=== PATIENT | male | born 1935 | race Caucasian/White ===

== ENCOUNTER → 2016-06-02 | Outpatient (CLI) | payer MEDICARE | LOC: MW.CHFP 08:00 | DX: S32.010A Wedge compression fracture of first lumbar vertebra, initial encounter for closed fracture (principal) | CPT/HCPCS: 99214 ==

== ENCOUNTER → 2016-06-15 | Outpatient (CLI) | payer MEDICARE | LOC: MW.CHFP 08:00 | PROVIDERS: ATTEND Student in an Organized Health Care Education/Training Program | DX: S32.010A Wedge compression fracture of first lumbar vertebra, initial encounter for closed fracture (principal) | CPT/HCPCS: G0463 ==

== ENCOUNTER → 2016-06-16 | Outpatient (CLI) | payer MEDICARE ==
--- NOTE | 2016-06-16 16:18 | CT ---
EXAMINATION: CT lumbar spine HISTORY: Wedge compression COMPARISON: 05/26/2016 TECHNIQUE: Axial CT images obtained through the thoracic spine without contrast. Coronal and sagitta l reconstructions obtained. FINDINGS: The lumbar spinal alignment appears grossly normal. There is mild compression deformity al rayne the superior endplate of L1, likely subacute to chronic. The visualized osseous structures other abebe appear mildly osteopenic. Spondylolysis is noted on the right at L5, also likely chronic. Disc space narrowing is noted at L4-L5 and L3-L4. Marginal osteophytes are noted. The SI joints are symme tric with mild anterior spurring. The visualized retroperitoneal structures appear grossly unremarka ble. IMPRESSION: 1. Mild subacute to chronic compression deformity at L1. 2. Likely chronic spondylolysis on the right at L5. 3. Multilevel degenerative changes and degenerative disc disease. 4. Mild osteopenia.
== END | disposition home or self-care (01) ==
LOC: MW.DI 12:52
PROVIDERS: ATTEND Student in an Organized Health Care Education/Training Program
DX: S32.010A Wedge compression fracture of first lumbar vertebra, initial encounter for closed fracture (principal); M43.8X6 Other specified deforming dorsopathies, lumbar region; M51.36 Other intervertebral disc degeneration, lumbar region; M47.896 Other spondylosis, lumbar region; M85.88 Other specified disorders of bone density and structure, other site
CPT/HCPCS: 72131; 72131-26

== ENCOUNTER 2016-09-21 17:34 | Emergency (ER) | payer MEDICARE ==
[2016-09-21] MEDS ORDERED: Sodium Chloride 0.9% 2.5 ML Syringe FLUSH PRN (17:53)
[2016-09-21] MEDS ORDERED: Sodium Chloride 0.9% 10 ML Syringe FLUSH PRN (17:53)
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
[2016-09-21] MEDS ORDERED: Labetalol 5 MG/ML 5 ML Syringe IVPUSH ONE (18:44)
[2016-09-21 19:26] VITALS: BP 163/86
--- NOTE | 2016-09-22 10:32 | CR ---
EXAM DATE: 09/21/16 PATIENT'S AGE: 81 Patient: FRANK GARCIA Facility: [place], [place] Site . Site : 1935 Study: XRay Chest [id number]/20/2017 6:10:49 PM Ordering Physician: Lydia Osorio Final Report: INDICATION: fall, loc TECHNIQUE: Chest 1 view COMPARISON: Aug 21 2015. FINDINGS: Cardiovascular and mediastinum: Heart size and vasculature are normal in caliber and appearance. Mediastinum is within normal limits. Lungs and pleural space: No focal consolidation. No sign of pleural effusion. No pneumothorax. Bones and soft tissues: Degenerative changes. IMPRESSION: No acute cardiopulmonary disease. Dictated by David Dietz MD @ 09/21/2016 6:24:11 PM Dictated by: David Dietz MD @ 09/21/2016 18:24:15 (Electronic Signature) Report Signed by Proxy. [facility]
--- NOTE | 2016-09-22 10:32 | CT ---
EXAM DATE: 09/21/16 PATIENT'S AGE: 81 Patient: FRANK GARCIA Facility: [place], [place] Site . Site : 1935 Study: CT Head [id number]/20/2017 6:07:36 PM Ordering Physician: Lydia Osorio Final Report: INDICATION: Fall. Loss of consciousness. CT HEAD WITHOUT CONTRAST TECHNIQUE: Multiple axial CT images were performed through the head without intravenous contrast administration. COMPARISON: 09/03/[address] FINDINGS: There is a small amount of acute-appearing intraventricular hemorrhage within the right lateral ventricle. No definite hydrocephalus is seen. There is no mass effect or midline shift. There is mild diffuse age- related brain atrophy, as before. Polanco-white differentiation is within normal limits. There is unchanged patchy hypodensity in the periventricular white matter, a nonspecific finding which most likely reflects chronic small vessel ischemic change. There is an unchanged chronic infarct in the posterior right temporal lobe. Intracranial atherosclerotic vascular calcifications are noted. Osseous structures are within normal limits and no fractures are seen. Included portions of the paranasal sinuses and mastoid air cells are normally aerated. IMPRESSION: 1. Acute mild intraventricular hemorrhage within the right lateral ventricle. No definite hydrocephalus. No mass effect or midline shift. 2. Age-related brain atrophy, white matter hypodensity consistent with chronic small vessel ischemic change, chronic right temporal lobe infarct, and intracranial atherosclerotic vascular calcifications. Results were called to Dr. Freeman at 6:30 p.m. on 09/21/2016. WANDY LOWE MD [employer] Dictated by Romulo Lowe MD @ 09/21/2016 6:35:38 PM Dictated by: Romulo Lowe MD @ 09/21/2016 18:38:18 (Electronic Signature) Report Signed by Proxy. [facility]
== END 2016-09-21 19:20 ==
LOC: MW.ED 17:34
DX: S06.349A Traumatic hemorrhage of right cerebrum with loss of consciousness of unspecified duration, initial encounter (principal); I10 Essential (primary) hypertension; E11.9 Type 2 diabetes mellitus without complications; F32.9 Major depressive disorder, single episode, unspecified; Z86.73 Personal history of transient ischemic attack (TIA), and cerebral infarction without residual deficits; Z85.038 Personal history of other malignant neoplasm of large intestine; Z98.49 Cataract extraction status, unspecified eye; Z98.890 Other specified postprocedural states; Z79.84 Long term (current) use of oral hypoglycemic drugs; Z79.899 Other long term (current) drug therapy; W19.XXXA Unspecified fall, initial encounter; Y92.009 Unspecified place in unspecified non-institutional (private) residence as the place of occurrence of the external cause
CPT/HCPCS: 70450; 70450-26; 71010; 71010-26; 80053; 84484; 85025; 85610; 93005; 96374; 99285; 99285-25

== ENCOUNTER 2019-10-12 15:53 | Inpatient (IN) | payer MEDICARE, OTHER ==
[2019-10-12] MEDS ORDERED: Ondansetron 4 MG/2 ML SDV IVPUSH ONE (16:32)
[2019-10-12] MEDS ORDERED: Sodium Chloride 0.9% 1,000 ML IV ONE ×2 (16:32→16:34)
[2019-10-12 17:38] LABS: CARBON DIOXIDE,CO2 23.7 mmol/L (21.0-32.0)
[2019-10-12] MEDS ORDERED: Famotidine 20 MG/2 ML SDV IVPUSH ONE (17:44)
[2019-10-12] MEDS ORDERED: Sodium Chloride 0.9% 1,000 ML IV SCH (17:45)
[2019-10-12] MEDS ORDERED: Meclizine 25 MG Tab PO ONE (19:01)
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
--- NOTE | 2019-10-12 21:11 | CT ---
Head CT Technique: Multiple axial sections through the brain were obtained. Intravenous contrast not utilized. Comparison: No previous intracranial imaging. Findings: Ventricles along with basal cisterns and sulci over the convexities are moderately prominent. Diminished density is noted within periventricular and subcortical white matter which is most likely due to small vessel ischemic demyelination change. Several old lacunar infarcts are noted within the basal ganglia. No other abnormal parenchymal densities are seen. No evidence of intracranial hemorrhage. No midline shift or mass-effect is seen. Atherosclerotic calcification is seen within the carotid siphon and within the vertebral vessels. Bone window settings were reviewed. Visualized mastoid sinuses and visualized paranasal sinuses show nothing acute. No acute calvarial finding is seen. Impression: 1. Senescent change as noted above. 2. No acute intracranial abnormality is appreciated. Diagnostic code #2 This report was dictated in MDT
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
[2019-10-12] MEDS: Sodium Chloride 0.9% 1,000 ML IV SCH (23:26)
[2019-10-13] MEDS: Sodium Chloride 0.9% 1,000 ML IV SCH ×2 (06:28→16:20)
[2019-10-13 06:57] LABS: CARBON DIOXIDE,CO2 25.3 mmol/L (21.0-32.0)
[2019-10-13] MEDS: Insulin Aspart 100 Units/ML 3 ML Pen SUBCUT SCH ×3 (07:30→17:30)
--- NOTE | 2019-10-13 10:49 | PCM.PN ---
- General Info Date of Service: 10/13/19 - Review of Systems Systems Review Comment:: no fevers, no shortness of breath, reports generalized weakness, rash on abdomen, and dizziness, feeling better than yesterday - Patient Data Vitals - Most Recent: Last Vital Signs Temp 36.2 C 10/13/19 08:20 Pulse 88 10/13/19 08:20 Resp 16 10/13/19 08:20 BP 176/84 H 10/13/19 08:20 Pulse Ox 96 10/13/19 08:20 Weight - Most Recent: 74.843 kg I&O - Last 24 Hours: Intake & Output 10/12/19 10/13/19 10/13/19 22:59 06:59 14:59 Intake Total 4035 Output Total 620 Balance 3415 Lab Results Last 24 Hours: Laboratory Results - last 24 hr 10/12/19 10/12/19 10/12/19 Range/Units 16:34 16:34 16:34 WBC 5.80 (4.0-11.0) K/uL RBC 3.97 L (4.50-5.90) M/uL Hgb 11.6 L (13.0-17.0) g/dL Hct 34.8 L (38.0-50.0) % MCV 87.7 (80.0-98.0) fL MCH 29.2 (27.0-32.0) pg MCHC 33.3 (31.0-37.0) g/dL RDW Std Deviation 46.1 (28.0-62.0) fl RDW Coeff of [place] 14 (11.0-15.0) % Plt Count 165 (150-400) K/uL MPV 9.40 (7.40-12.00) fL Neut % (Auto) 74.2 (48.0-80.0) % Lymph % (Auto) 13.3 L (16.0-40.0) % [place] % (Auto) 12.1 (0.0-15.0) % Eos % (Auto) 0.2 (0.0-7.0) % Baso % (Auto) 0.2 (0.0-1.5) % Neut # (Auto) 4.3 (1.4-5.7) K/uL Lymph # (Auto) 0.8 (0.6-2.4) K/uL [place] # (Auto) 0.7 (0.0-0.8) K/uL Eos # (Auto) 0.0 (0.0-0.7) K/uL Baso # (Auto) 0.0 (0.0-0.1) K/uL Nucleated RBC % 0.0 /100WBC Nucleated RBCs # 0 K/uL VBG pH 7.41 (7.31-7.41) Sodium 133 L (136-148) mmol/L Potassium 4.0 (3.5-5.1) mmol/L Chloride 96 L (98-107) mmol/L Carbon Dioxide 23.7 (21.0-32.0) mmol/L BUN 31 H (7.0-18.0) mg/dL Creatinine 1.7 H (0.8-1.3) mg/dL Est Cr Clr Drug Dosing 30.74 mL/min Estimated GFR (MDRD) 38.5 ml/min Glucose 180 H (74-106) mg/dL Calcium 9.3 (8.5-10.1) mg/dL Total Bilirubin 0.5 (0.2-1.0) mg/dL AST 21 (15-37) IU/L ALT 18 (14-63) IU/L Alkaline Phosphatase 63 (46-116) U/L Total Protein 8.0 (6.4-8.2) g/dL Albumin 3.7 (3.4-5.0) g/dL Globulin 4.3 H (2.6-4.0) g/dL Albumin/Globulin Ratio 0.9 (0.9-1.6) Urine Color Urine Appearance Urine pH (5.0-8.0) Ur Specific [place] (1.001-1.035) Urine Protein (NEGATIVE) mg/dL Urine Glucose (UA) (NEGATIVE) mg/dL Urine Ketones (NEGATIVE) mg/dL Urine Occult Blood (NEGATIVE) Urine Nitrite (NEGATIVE) Urine Bilirubin (NEGATIVE) Urine Urobilinogen (<2.0) EU/dL Ur Leukocyte Esterase (NEGATIVE) Urine RBC (0-2/HPF) Urine WBC (0-5/HPF) Ur Epithelial Cells (NONE-FEW) Urine Bacteria (NEGATIVE) Fine Granular Casts (NEGATIVE) Urine Mucus (NONE-MOD) SARS Virus RNA (PCR) (NEGATIVE) 10/12/19 10/12/19 10/13/19 Range/Units 20:25 20:51 06:20 WBC 3.32 L (4.0-11.0) K/uL RBC 3.40 L (4.50-5.90) M/uL Hgb 10.0 L (13.0-17.0) g/dL Hct 30.1 L (38.0-50.0) % MCV 88.5 (80.0-98.0) fL MCH 29.4 (27.0-32.0) pg MCHC 33.2 (31.0-37.0) g/dL RDW Std Deviation 47.2 (28.0-62.0) fl RDW Coeff of [place] 14 (11.0-15.0) % Plt Count 112 L (150-400) K/uL MPV 9.00 (7.40-12.00) fL Neut % (Auto) (48.0-80.0) % Lymph % (Auto) (16.0-40.0) % [place] % (Auto) (0.0-15.0) % Eos % (Auto) (0.0-7.0) % Baso % (Auto) (0.0-1.5) % Neut # (Auto) (1.4-5.7) K/uL Lymph # (Auto) (0.6-2.4) K/uL [place] # (Auto) (0.0-0.8) K/uL Eos # (Auto) (0.0-0.7) K/uL Baso # (Auto) (0.0-0.1) K/uL Nucleated RBC % 0.0 /100WBC Nucleated RBCs # 0 K/uL VBG pH (7.31-7.41) Sodium (136-148) mmol/L Potassium (3.5-5.1) mmol/L Chloride (98-107) mmol/L Carbon Dioxide (21.0-32.0) mmol/L BUN (7.0-18.0) mg/dL Creatinine (0.8-1.3) mg/dL Est Cr Clr Drug Dosing mL/min Estimated GFR (MDRD) ml/min Glucose (74-106) mg/dL Calcium (8.5-10.1) mg/dL Total Bilirubin (0.2-1.0) mg/dL AST (15-37) IU/L ALT (14-63) IU/L Alkaline Phosphatase (46-116) U/L Total Protein (6.4-8.2) g/dL Albumin (3.4-5.0) g/dL Globulin (2.6-4.0) g/dL Albumin/Globulin Ratio (0.9-1.6) Urine Color YELLOW Urine Appearance HAZY Urine pH 5.5 (5.0-8.0) Ur Specific [place] >= 1.030 (1.001-1.035) Urine Protein 100 H (NEGATIVE) mg/dL Urine Glucose (UA) NEGATIVE (NEGATIVE) mg/dL Urine Ketones NEGATIVE (NEGATIVE) mg/dL Urine Occult Blood SMALL H (NEGATIVE) Urine Nitrite NEGATIVE (NEGATIVE) Urine Bilirubin NEGATIVE (NEGATIVE) Urine Urobilinogen 0.2 (<2.0) EU/dL Ur Leukocyte Esterase NEGATIVE (NEGATIVE) Urine RBC 0-4 (0-2/HPF) Urine WBC 0-3 (0-5/HPF) Ur Epithelial Cells RARE (NONE-FEW) Urine Bacteria 1+ H (NEGATIVE) Fine Granular Casts 0-1 (NEGATIVE) Urine Mucus LIGHT (NONE-MOD) SARS Virus RNA (PCR) POSITIVE H (NEGATIVE) 10/13/19 Range/Units 06:20 WBC (4.0-11.0) K/uL RBC (4.50-5.90) M/uL Hgb (13.0-17.0) g/dL Hct (38.0-50.0) % MCV (80.0-98.0) fL MCH (27.0-32.0) pg MCHC (31.0-37.0) g/dL RDW Std Deviation (28.0-62.0) fl RDW Coeff of [place] (11.0-15.0) % Plt Count (150-400) K/uL MPV (7.40-12.00) fL Neut % (Auto) (48.0-80.0) % Lymph % (Auto) (16.0-40.0) % [place] % (Auto) (0.0-15.0) % Eos % (Auto) (0.0-7.0) % Baso % (Auto) (0.0-1.5) % Neut # (Auto) (1.4-5.7) K/uL Lymph # (Auto) (0.6-2.4) K/uL [place] # (Auto) (0.0-0.8) K/uL Eos # (Auto) (0.0-0.7) K/uL Baso # (Auto) (0.0-0.1) K/uL Nucleated RBC % /100WBC Nucleated RBCs # K/uL VBG pH (7.31-7.41) Sodium 136 (136-148) mmol/L Potassium 4.0 (3.5-5.1) mmol/L Chloride 102 (98-107) mmol/L Carbon Dioxide 25.3 (21.0-32.0) mmol/L BUN 20 H (7.0-18.0) mg/dL Creatinine 1.3 (0.8-1.3) mg/dL Est Cr Clr Drug Dosing 40.19 mL/min Estimated GFR (MDRD) 52.5 ml/min Glucose 116 H (74-106) mg/dL Calcium 8.0 L (8.5-10.1) mg/dL Total Bilirubin (0.2-1.0) mg/dL AST (15-37) IU/L ALT (14-63) IU/L Alkaline Phosphatase (46-116) U/L Total Protein (6.4-8.2) g/dL Albumin (3.4-5.0) g/dL Globulin (2.6-4.0) g/dL Albumin/Globulin Ratio (0.9-1.6) Urine Color Urine Appearance Urine pH (5.0-8.0) Ur Specific [place] (1.001-1.035) Urine Protein (NEGATIVE) mg/dL Urine Glucose (UA) (NEGATIVE) mg/dL Urine Ketones (NEGATIVE) mg/dL Urine Occult Blood (NEGATIVE) Urine Nitrite (NEGATIVE) Urine Bilirubin (NEGATIVE) Urine Urobilinogen (<2.0) EU/dL Ur Leukocyte Esterase (NEGATIVE) Urine RBC (0-2/HPF) Urine WBC (0-5/HPF) Ur Epithelial Cells (NONE-FEW) Urine Bacteria (NEGATIVE) Fine Granular Casts (NEGATIVE) Urine Mucus (NONE-MOD) SARS Virus RNA (PCR) (NEGATIVE) Med Orders - Current: Current Medications Lisinopril/HCTZ (Lisinopril-Hctz 10-12.5 Mg) 1 tab PO DAILY [facility] Sodium Chloride (Normal Saline) 1,000 mls @ 999 mls/hr IV ASDIRECTED [facility] Last Admin: 10/12/19 17:58 Dose: 999 mls/hr Documented by: Sodium Chloride (Normal Saline) 1,000 mls @ 125 mls/hr IV ASDIRECTED [facility] Last Admin: 10/13/19 06:28 Dose: 125 mls/hr Documented by: Insulin Aspart (Novolog) 0 unit SUBCUT TIDAC [facility]; Protocol Last Admin: 10/13/19 07:30 Dose: Not Given Documented by: Discontinued Medications Famotidine (Pepcid) 20 mg IVPUSH ONETIME ONE Stop: 10/12/19 17:45 Last Admin: 10/12/19 17:58 Dose: 20 mg Documented by: Sodium Chloride (Normal Saline) 1,000 mls @ 999 mls/hr IV .Bolus ONE Stop: 10/12/19 17:32 Last Admin: 10/12/19 16:43 Dose: 999 mls/hr Documented by: Sodium Chloride (Normal Saline) 1,000 mls @ 999 mls/hr IV .Bolus ONE Stop: 10/12/19 17:34 Last Admin: 10/12/19 16:44 Dose: 999 mls/hr Documented by: Meclizine HCl (Antivert) 25 mg PO ONETIME ONE Stop: 10/12/19 19:02 Last Admin: 10/12/19 19:10 Dose: 25 mg Documented by: Ondansetron HCl (Zofran) 4 mg IVPUSH ONETIME ONE Stop: 10/12/19 16:33 Last Admin: 10/12/19 16:44 Dose: 4 mg Documented by: - Exam General: Alert, Oriented HEENT: Pupils Equal Neck: Supple Lungs: Clear to Auscultation, Normal Respiratory Effort Cardiovascular: Regular Rate, Regular Rhythm GI/Abdominal Exam: Soft, Non-Tender, No Distention Extremities: Non-Tender, No Pedal Edema Skin: Rash (macular rash over abdomen) Neurological: No New Focal Deficit, Normal Speech, Normal Tone, Strength Equal Bilateral, Sensation Intact, Cranial Nerves Intact Sepsis Event Note - Evaluation Sepsis Screening Result: No Definite Risk - Focused Exam Vital Signs: Vital Signs Temp Pulse Resp BP BP Pulse Ox Pulse Ox 07/11/20 08:20 36.2 C 88 16 176/84 H 96 10/13/19 05:39 36.6 C 87 18 169/68 H 95 10/13/19 00:00 37.0 C 84 22 H 145/82 H 97 97 Date Exam was Performed: 10/13/19 Time Exam was Performed: 11:08 - Problem List Review Problem List Initiated/Reviewed/Updated: Yes - My Orders Last 24 Hours: My Active Orders 10/12/19 22:55 Telemetry Monitoring [Cardiac Monitoring] [RC] Q8H Isolation [COMM] Routine 10/12/19 23:15 Blood Glucose Check, Bedside [RC] TIDMEALS Oxygen Therapy [RC] PRN Up ad Ekta [RC] ASDIRECTED VTE/DVT Education [RC] PER UNIT ROUTINE Vital Signs [RC] Q4H Sodium Chloride 0.9% [Normal Saline] 1,000 ml IV ASDIRECTED Sequential Compression Device [OM.PC] Per Unit Routine Resuscitation Status Routine 10/12/19 23:16 Antiembolic Devices [RC] PER UNIT ROUTINE 10/13/19 07:30 Insulin Aspart [NovoLOG] See Protocol SUBCUT TIDAC 10/13/19 11:00 Lisinopril/Hydrochlorothiazide [Lisinopril-HCTZ 10-12.5 MG] 1 tab PO DAILY - Plan Plan:: 84 yo male admitted with dizziness found to have acute kidney injury likely from dehydration and COVID-19. Acute kidney injury: creatinine improving with IV fluids Dizziness: CT head negative, will get up to chair today and try walking COVID-19: will get CXR.
[2019-10-13] MEDS: Lisinopril/Hydrochlorothiazide 10-12.5 MG Tab PO SCH (12:00)
--- NOTE | 2019-10-13 14:48 | CR ---
INDICATION: Hypoxemia. COVID positive COMPARISON: None TECHNIQUE: A single view of the chest was acquired FINDINGS: TUBES AND LINES: None. HEART AND MEDIASTINUM: The heart size is normal. The mediastinal contour appears normal for patient age. LUNGS AND PLEURAL SPACES: Patchy airspace opacities primarily in the right midlung, right base and left base. While non specific, the findings are compatible withan inflammatory process such asCOVID pneumonia. OSSEOUS STRUCTURES: Age-appropriate appearance. No acute focal finding. IMPRESSION: Patchy airspace opacities bilaterally, right greater than left. One-month specific, the findings are compatible with COVID pneumonia. No sourav consolidation. No pleural effusion Dictated by Stefano Pitts MD @ Oct 13 2019 2:44PM Signed by Dr. Stefano Pitts @ Oct 13 2019 2:47PM
[2019-10-13] MEDS ORDERED: Enoxaparin 40 MG/0.4 ML Syringe SUBCUT SCH (21:15)
[2019-10-13] MEDS: Dexamethasone 10 MG/ML SDV IVPUSH SCH (21:43)
[2019-10-13] MEDS: Azithromycin 500 MG in Sodium Chloride 0.9% 250 ML IV SCH (21:44)
[2019-10-13 21:49] LABS: BILIRUBIN INDIRECT 0.2
[2019-10-13] MEDS: Acetaminophen 325 MG Tab PO PRN (23:22)
[2019-10-14 06:51] LABS: CARBON DIOXIDE,CO2 26.8 mmol/L (21.0-32.0); POTASSIUM,K 4.5 mmol/L (3.5-5.1)
[2019-10-14] MEDS: Dexamethasone 10 MG/ML SDV IVPUSH SCH (09:22)
[2019-10-14] MEDS: Lisinopril/Hydrochlorothiazide 10-12.5 MG Tab PO SCH (09:23)
[2019-10-14] MEDS: Azithromycin 500 MG in Sodium Chloride 0.9% 250 ML IV SCH (09:26)
[2019-10-14] MEDS: Insulin Aspart 100 Units/ML 3 ML Pen SUBCUT SCH ×3 (09:27→18:01)
[2019-10-14] MEDS ORDERED: Magnesium Sulfate/Water 2 GM in Premix Bag 1 BAG IV ONE (10:24)
--- NOTE | 2019-10-14 10:34 | PCM.PN ---
- General Info Date of Service: 10/14/19 Admission Dx/Problem (Free Text): Admission Diagnosis/Problem Admission Diagnosis/Problem Ataxia Subjective Update: patient is resting on chair, comfortably, still on oxygen, very hard of hearing - Review of Systems General: Reports: Weakness. Denies: Fever, Fatigue Pulmonary: Reports: Shortness of Breath (improved). Denies: Pleuritic Chest Pain, Cough Cardiovascular: Denies: Chest Pain, Palpitations Gastrointestinal: Denies: Abdominal Pain, Constipation, Decreased Appetite Genitourinary: Denies: Dysuria, Frequency, Burning Musculoskeletal: Denies: Neck Pain, Shoulder Pain, Arm Pain Neurological: Denies: Confusion, Dizziness, Headache - Patient Data Vitals - Most Recent: Last Vital Signs Temp 35.8 C L 10/14/19 09:00 Pulse 75 10/14/19 09:00 Resp 20 10/14/19 09:00 BP 161/89 H 10/14/19 09:00 Pulse Ox 96 10/14/19 09:00 Weight - Most Recent: 71.758 kg I&O - Last 24 Hours: Intake & Output 10/13/19 10/14/19 10/14/19 22:59 06:59 14:59 Intake Total 1185 850 Output Total 1030 900 Balance 155 -50 Lab Results Last 24 Hours: Laboratory Results - last 24 hr 10/13/19 10/13/19 10/13/19 Range/Units 06:20 06:34 11:05 WBC (4.0-11.0) K/uL RBC (4.50-5.90) M/uL Hgb (13.0-17.0) g/dL Hct (38.0-50.0) % MCV (80.0-98.0) fL MCH (27.0-32.0) pg MCHC (31.0-37.0) g/dL RDW Std Deviation (28.0-62.0) fl RDW Coeff of [place] (11.0-15.0) % Plt Count (150-400) K/uL MPV (7.40-12.00) fL Neut % (Auto) (48.0-80.0) % Lymph % (Auto) (16.0-40.0) % [place] % (Auto) (0.0-15.0) % Eos % (Auto) (0.0-7.0) % Baso % (Auto) (0.0-1.5) % Neut # (Auto) (1.4-5.7) K/uL Lymph # (Auto) (0.6-2.4) K/uL [place] # (Auto) (0.0-0.8) K/uL Eos # (Auto) (0.0-0.7) K/uL Baso # (Auto) (0.0-0.1) K/uL Nucleated RBC % /100WBC Nucleated RBCs # K/uL INR APTT (18.6-31.3) SEC D-Dimer, Quantitative (0.0-0.50) mg/L FEU Sodium (136-148) mmol/L Potassium (3.5-5.1) mmol/L Chloride (98-107) mmol/L Carbon Dioxide (21.0-32.0) mmol/L BUN (7.0-18.0) mg/dL Creatinine (0.8-1.3) mg/dL Est Cr Clr Drug Dosing mL/min Estimated GFR (MDRD) ml/min Glucose (74-106) mg/dL POC Glucose 119 H 133 H (60-110) mg/dL Calcium (8.5-10.1) mg/dL Phosphorus (2.6-4.7) mg/dL Magnesium (1.8-2.4) mg/dL Ferritin (26-388) ng/mL Total Bilirubin 0.4 (0.2-1.0) mg/dL Direct Bilirubin 0.20 (0.0-0.5) mg/dL Indirect Bilirubin 0.20 AST 27 (15-37) IU/L ALT 15 (14-63) IU/L Alkaline Phosphatase 50 (46-116) U/L Creatine Kinase (26-308) U/L C-Reactive Protein (0.00-0.90) mg/dL Total Protein 6.5 (6.4-8.2) g/dL Albumin 3.0 L (3.4-5.0) g/dL Globulin 3.5 (2.6-4.0) g/dL Albumin/Globulin Ratio 0.9 (0.9-1.6) 10/13/19 10/13/19 10/13/19 Range/Units 17:43 21:51 21:51 WBC (4.0-11.0) K/uL RBC (4.50-5.90) M/uL Hgb (13.0-17.0) g/dL Hct (38.0-50.0) % MCV (80.0-98.0) fL MCH (27.0-32.0) pg MCHC (31.0-37.0) g/dL RDW Std Deviation (28.0-62.0) fl RDW Coeff of [place] (11.0-15.0) % Plt Count (150-400) K/uL MPV (7.40-12.00) fL Neut % (Auto) (48.0-80.0) % Lymph % (Auto) (16.0-40.0) % [place] % (Auto) (0.0-15.0) % Eos % (Auto) (0.0-7.0) % Baso % (Auto) (0.0-1.5) % Neut # (Auto) (1.4-5.7) K/uL Lymph # (Auto) (0.6-2.4) K/uL [place] # (Auto) (0.0-0.8) K/uL Eos # (Auto) (0.0-0.7) K/uL Baso # (Auto) (0.0-0.1) K/uL Nucleated RBC % /100WBC Nucleated RBCs # K/uL INR APTT 33.8 H (18.6-31.3) SEC D-Dimer, Quantitative (0.0-0.50) mg/L FEU Sodium (136-148) mmol/L Potassium (3.5-5.1) mmol/L Chloride (98-107) mmol/L Carbon Dioxide (21.0-32.0) mmol/L BUN (7.0-18.0) mg/dL Creatinine (0.8-1.3) mg/dL Est Cr Clr Drug Dosing mL/min Estimated GFR (MDRD) ml/min Glucose (74-106) mg/dL POC Glucose 106 (60-110) mg/dL Calcium (8.5-10.1) mg/dL Phosphorus (2.6-4.7) mg/dL Magnesium (1.8-2.4) mg/dL Ferritin 406 H (26-388) ng/mL Total Bilirubin (0.2-1.0) mg/dL Direct Bilirubin (0.0-0.5) mg/dL Indirect Bilirubin AST (15-37) IU/L ALT (14-63) IU/L Alkaline Phosphatase (46-116) U/L Creatine Kinase (26-308) U/L C-Reactive Protein (0.00-0.90) mg/dL Total Protein (6.4-8.2) g/dL Albumin (3.4-5.0) g/dL Globulin (2.6-4.0) g/dL Albumin/Globulin Ratio (0.9-1.6) 10/14/19 10/14/19 10/14/19 Range/Units 06:20 06:20 06:20 WBC 2.96 L (4.0-11.0) K/uL RBC 3.57 L (4.50-5.90) M/uL Hgb 10.3 L (13.0-17.0) g/dL Hct 30.9 L (38.0-50.0) % MCV 86.6 (80.0-98.0) fL MCH 28.9 (27.0-32.0) pg MCHC 33.3 (31.0-37.0) g/dL RDW Std Deviation 44.0 (28.0-62.0) fl RDW Coeff of [place] 14 (11.0-15.0) % Plt Count 126 L (150-400) K/uL MPV 9.20 (7.40-12.00) fL Neut % (Auto) 87.2 H (48.0-80.0) % Lymph % (Auto) 7.1 L (16.0-40.0) % [place] % (Auto) 5.7 (0.0-15.0) % Eos % (Auto) 0.0 (0.0-7.0) % Baso % (Auto) 0.0 (0.0-1.5) % Neut # (Auto) 2.6 (1.4-5.7) K/uL Lymph # (Auto) 0.2 L (0.6-2.4) K/uL [place] # (Auto) 0.2 (0.0-0.8) K/uL Eos # (Auto) 0.0 (0.0-0.7) K/uL Baso # (Auto) 0.0 (0.0-0.1) K/uL Nucleated RBC % 0.0 /100WBC Nucleated RBCs # 0 K/uL INR 1.00 APTT (18.6-31.3) SEC D-Dimer, Quantitative 1.12 H (0.0-0.50) mg/L FEU Sodium 134 L (136-148) mmol/L Potassium 4.5 (3.5-5.1) mmol/L Chloride 99 (98-107) mmol/L Carbon Dioxide 26.8 (21.0-32.0) mmol/L BUN 20 H (7.0-18.0) mg/dL Creatinine 1.3 (0.8-1.3) mg/dL Est Cr Clr Drug Dosing 40.19 mL/min Estimated GFR (MDRD) 52.5 ml/min Glucose 239 H (74-106) mg/dL POC Glucose (60-110) mg/dL Calcium 8.4 L (8.5-10.1) mg/dL Phosphorus 4.0 (2.6-4.7) mg/dL Magnesium 1.3 L (1.8-2.4) mg/dL Ferritin (26-388) ng/mL Total Bilirubin (0.2-1.0) mg/dL Direct Bilirubin (0.0-0.5) mg/dL Indirect Bilirubin AST (15-37) IU/L ALT (14-63) IU/L Alkaline Phosphatase (46-116) U/L Creatine Kinase (26-308) U/L C-Reactive Protein (0.00-0.90) mg/dL Total Protein (6.4-8.2) g/dL Albumin (3.4-5.0) g/dL Globulin (2.6-4.0) g/dL Albumin/Globulin Ratio (0.9-1.6) 10/14/19 10/14/19 Range/Units 06:20 06:57 WBC (4.0-11.0) K/uL RBC (4.50-5.90) M/uL Hgb (13.0-17.0) g/dL Hct (38.0-50.0) % MCV (80.0-98.0) fL MCH (27.0-32.0) pg MCHC (31.0-37.0) g/dL RDW Std Deviation (28.0-62.0) fl RDW Coeff of [place] (11.0-15.0) % Plt Count (150-400) K/uL MPV (7.40-12.00) fL Neut % (Auto) (48.0-80.0) % Lymph % (Auto) (16.0-40.0) % [place] % (Auto) (0.0-15.0) % Eos % (Auto) (0.0-7.0) % Baso % (Auto) (0.0-1.5) % Neut # (Auto) (1.4-5.7) K/uL Lymph # (Auto) (0.6-2.4) K/uL [place] # (Auto) (0.0-0.8) K/uL Eos # (Auto) (0.0-0.7) K/uL Baso # (Auto) (0.0-0.1) K/uL Nucleated RBC % /100WBC Nucleated RBCs # K/uL INR APTT (18.6-31.3) SEC D-Dimer, Quantitative (0.0-0.50) mg/L FEU Sodium (136-148) mmol/L Potassium (3.5-5.1) mmol/L Chloride (98-107) mmol/L Carbon Dioxide (21.0-32.0) mmol/L BUN (7.0-18.0) mg/dL Creatinine (0.8-1.3) mg/dL Est Cr Clr Drug Dosing mL/min Estimated GFR (MDRD) ml/min Glucose (74-106) mg/dL POC Glucose 210 H (60-110) mg/dL Calcium (8.5-10.1) mg/dL Phosphorus (2.6-4.7) mg/dL Magnesium (1.8-2.4) mg/dL Ferritin (26-388) ng/mL Total Bilirubin (0.2-1.0) mg/dL Direct Bilirubin (0.0-0.5) mg/dL Indirect Bilirubin AST (15-37) IU/L ALT (14-63) IU/L Alkaline Phosphatase (46-116) U/L Creatine Kinase 213 (26-308) U/L C-Reactive Protein 12.30 H (0.00-0.90) mg/dL Total Protein (6.4-8.2) g/dL Albumin (3.4-5.0) g/dL Globulin (2.6-4.0) g/dL Albumin/Globulin Ratio (0.9-1.6) Med Orders - Current: Current Medications Acetaminophen (Tylenol) 650 mg PO Q6H PRN PRN Reason: Pain/Fever Last Admin: 10/13/19 23:22 Dose: 650 mg Documented by: Dexamethasone (Dexamethasone) 6 mg IVPUSH DAILY [facility] Last Admin: 10/14/19 09:22 Dose: 6 mg Documented by: Enoxaparin Sodium (Lovenox) 70 mg 1 mg/kg (70 mg) SUBCUT Q12H [facility] Lisinopril/HCTZ (Lisinopril-Hctz 10-12.5 Mg) 1 tab PO DAILY [facility] Last Admin: 10/14/19 09:23 Dose: 1 tab Documented by: Sodium Chloride (Normal Saline) 1,000 mls @ 50 mls/hr IV ASDIRECTED [facility] Last Admin: 10/13/19 16:20 Dose: 125 mls/hr Documented by: Azithromycin 500 mg/ Sodium (Chloride) 250 mls @ 250 mls/hr IV DAILY [facility] Last Admin: 10/14/19 09:26 Dose: 250 mls/hr Documented by: Magnesium Sulfate 2 gm/ Premix 50 mls @ 50 mls/hr IV ONETIME ONE Stop: 10/14/19 11:23 Insulin Aspart (Novolog) 0 unit SUBCUT TIDAC [facility]; Protocol Last Admin: 10/14/19 09:27 Dose: 2 units Documented by: Discontinued Medications Enoxaparin Sodium (Lovenox) 40 mg SUBCUT Q24H [facility] Last Admin: 10/13/19 21:43 Dose: 40 mg Documented by: Famotidine (Pepcid) 20 mg IVPUSH ONETIME ONE Stop: 10/12/19 17:45 Last Admin: 10/12/19 17:58 Dose: 20 mg Documented by: Sodium Chloride (Normal Saline) 1,000 mls @ 999 mls/hr IV .Bolus ONE Stop: 10/12/19 17:32 Last Admin: 10/12/19 16:43 Dose: 999 mls/hr Documented by: Sodium Chloride (Normal Saline) 1,000 mls @ 999 mls/hr IV .Bolus ONE Stop: 10/12/19 17:34 Last Admin: 10/12/19 16:44 Dose: 999 mls/hr Documented by: Sodium Chloride (Normal Saline) 1,000 mls @ 999 mls/hr IV ASDIRECTED YONG Last Admin: 10/12/19 17:58 Dose: 999 mls/hr Documented by: Meclizine HCl (Antivert) 25 mg PO ONETIME ONE Stop: 10/12/19 19:02 Last Admin: 10/12/19 19:10 Dose: 25 mg Documented by: Ondansetron HCl (Zofran) 4 mg IVPUSH ONETIME ONE Stop: 10/12/19 16:33 Last Admin: 10/12/19 16:44 Dose: 4 mg Documented by: - Exam Quality Assessment: Supplemental Oxygen General: Alert, Oriented Neck: Supple, Trachea Midline Lungs: Clear to Auscultation, Decreased Breath Sounds Cardiovascular: Regular Rate, Regular Rhythm GI/Abdominal Exam: Normal Bowel Sounds, Soft, Non-Tender Neurological: No New Focal Deficit Psy/Mental Status: Alert, Normal Affect Sepsis Event Note - Evaluation Sepsis Screening Result: Severe Sepsis Risk - Focused Exam Vital Signs: Vital Signs Temp Pulse Resp BP BP Pulse Ox 10/14/19 09:00 35.8 C L 75 20 161/89 H 96 10/14/19 03:03 37.0 C 72 19 138/65 96 10/13/19 23:24 37.1 C 93 19 145/74 H 95 Date Exam was Performed: 10/14/19 Time Exam was Performed: 12:40 - Problem List Review Problem List Initiated/Reviewed/Updated: Yes - My Orders Last 24 Hours: My Active Orders 10/13/19 21:30 Azithromycin [Zithromax] 500 mg Sodium Chloride 0.9% [Normal Saline (AdvBag)] 250 ml IV DAILY dexAMETHasone [Dexamethasone] 6 mg IVPUSH DAILY 10/13/19 22:50 Acetaminophen [Tylenol] 650 mg PO Q6H PRN 10/14/19 10:24 Magnesium Sulfate/Water [Magnesium Sulfate in Water Premix] 2 gm Premix Bag 1 bag IV ONETIME 07/12/20 10:30 Enoxaparin [Lovenox] 70 mg SUBCUT Q12H - Plan Plan:: 84 yo male admitted with dizziness found to have acute kidney injury likely from dehydration and COVID-19. Acute kidney injury: resolved IV fluids Dizziness: CT head negative, Dizziness has resolved COVID-19: CXR shows b/l infiltrate suggestive for COVID PNA, started on IV dexamethasone , also started on IV azithromycin, we dont have Remdesivir available here, so far patient is stable, if oxygen requirement go up will have to transfer to [facility]. Checked his Inflammatory markers, will trend every other day, D-Dimer is high so will start Lovenox therapeutic dose. Leucopenia as expected for COVID, no sepsis for now, Change to inpatient as patient still oxygen dependent, but isn't getting worse for now. Monitor and replete electrolytes as needed cont Oxygen via Nasal cannula, titrate down as tolerated
[2019-10-14] MEDS: Enoxaparin 100 MG/1 ML Syringe SUBCUT SCH ×2 (12:01→22:06)
[2019-10-14] MEDS ORDERED: Labetalol 100 MG/20 ML MDV IVPUSH ONE (18:13)
[2019-10-15] MEDS: Acetaminophen 325 MG Tab PO PRN ×3 (03:56→20:45)
[2019-10-15 06:28] LABS: POTASSIUM,K 4.4 mmol/L (3.5-5.1)
[2019-10-15] MEDS: Dexamethasone 10 MG/ML SDV IVPUSH SCH (08:52)
[2019-10-15] MEDS: Lisinopril/Hydrochlorothiazide 10-12.5 MG Tab PO SCH (08:53)
[2019-10-15] MEDS: Azithromycin 500 MG in Sodium Chloride 0.9% 250 ML IV SCH (08:53)
[2019-10-15] MEDS: Insulin Aspart 100 Units/ML 3 ML Pen SUBCUT SCH ×3 (09:04→17:46)
[2019-10-15] MEDS: Enoxaparin 100 MG/1 ML Syringe SUBCUT SCH ×2 (11:01→21:29)
[2019-10-15] MEDS ORDERED: Sodium Chloride 0.9% 250 ML IV ONE (11:22)
[2019-10-15] MEDS ORDERED: Benzocaine/Cetylpyridinium/Menthol Lozenge MUCMEM PRN (13:21)
[2019-10-15] MEDS ORDERED: Phenol 1.4% Oral Spray 177 ML Bottle MUCMEM PRN (13:21)
--- NOTE | 2019-10-15 16:15 | PCM.PN ---
- General Info Date of Service: 10/15/19 Admission Dx/Problem (Free Text): Admission Diagnosis/Problem Admission Diagnosis/Problem Ataxia Subjective Update: patient is resting in bed, no acute complains - Review of Systems General: Reports: No Symptoms, Weakness. Denies: Fever HEENT: Denies: Glasses, Headaches, Sinus Congestion Pulmonary: Denies: Shortness of Breath Cardiovascular: Denies: Chest Pain, Palpitations Musculoskeletal: Denies: Neck Pain, Shoulder Pain Skin: Denies: Cyanosis, Jaundice, Mottled Neurological: Denies: Confusion, Dizziness Psychiatric: Denies: Depression, Mood Lability - Patient Data Vitals - Most Recent: Last Vital Signs Temp 37.3 C 10/15/19 12:00 Pulse 84 10/15/19 12:00 Resp 21 H 10/15/19 12:00 BP 131/73 10/15/19 12:00 Pulse Ox 91 L 10/15/19 12:00 Weight - Most Recent: 71.758 kg I&O - Last 24 Hours: Intake & Output 10/15/19 10/15/19 10/15/19 06:59 14:59 22:59 Intake Total 300 550 Output Total 400 400 Balance -100 150 Lab Results Last 24 Hours: Laboratory Results - last 24 hr 10/14/19 10/15/19 10/15/19 Range/Units 17:59 05:45 05:45 WBC 5.66 (4.0-11.0) K/uL RBC 3.58 L (4.50-5.90) M/uL Hgb 10.5 L (13.0-17.0) g/dL Hct 30.7 L (38.0-50.0) % MCV 85.8 (80.0-98.0) fL MCH 29.3 (27.0-32.0) pg MCHC 34.2 (31.0-37.0) g/dL RDW Std Deviation 42.9 (28.0-62.0) fl RDW Coeff of [place] 14 (11.0-15.0) % Plt Count 181 (150-400) K/uL MPV 9.50 (7.40-12.00) fL Neut % (Auto) 87.8 H (48.0-80.0) % Lymph % (Auto) 7.6 L (16.0-40.0) % [place] % (Auto) 4.4 (0.0-15.0) % Eos % (Auto) 0.2 (0.0-7.0) % Baso % (Auto) 0.0 (0.0-1.5) % Neut # (Auto) 5.0 (1.4-5.7) K/uL Lymph # (Auto) 0.4 L (0.6-2.4) K/uL [place] # (Auto) 0.3 (0.0-0.8) K/uL Eos # (Auto) 0.0 (0.0-0.7) K/uL Baso # (Auto) 0.0 (0.0-0.1) K/uL Nucleated RBC % 0.0 /100WBC Nucleated RBCs # 0 K/uL Sodium 137 (136-148) mmol/L Potassium 4.4 (3.5-5.1) mmol/L Chloride 101 (98-107) mmol/L Carbon Dioxide 26.0 (21.0-32.0) mmol/L BUN 25 H (7.0-18.0) mg/dL Creatinine 1.4 H (0.8-1.3) mg/dL Est Cr Clr Drug Dosing 37.32 mL/min Estimated GFR (MDRD) 48.2 ml/min Glucose 169 H (74-106) mg/dL POC Glucose 318 H (60-110) mg/dL Calcium 8.8 (8.5-10.1) mg/dL Phosphorus 3.4 (2.6-4.7) mg/dL Magnesium 1.7 L (1.8-2.4) mg/dL 10/15/19 10/15/19 Range/Units 07:01 11:05 WBC (4.0-11.0) K/uL RBC (4.50-5.90) M/uL Hgb (13.0-17.0) g/dL Hct (38.0-50.0) % MCV (80.0-98.0) fL MCH (27.0-32.0) pg MCHC (31.0-37.0) g/dL RDW Std Deviation (28.0-62.0) fl RDW Coeff of [place] (11.0-15.0) % Plt Count (150-400) K/uL MPV (7.40-12.00) fL Neut % (Auto) (48.0-80.0) % Lymph % (Auto) (16.0-40.0) % [place] % (Auto) (0.0-15.0) % Eos % (Auto) (0.0-7.0) % Baso % (Auto) (0.0-1.5) % Neut # (Auto) (1.4-5.7) K/uL Lymph # (Auto) (0.6-2.4) K/uL [place] # (Auto) (0.0-0.8) K/uL Eos # (Auto) (0.0-0.7) K/uL Baso # (Auto) (0.0-0.1) K/uL Nucleated RBC % /100WBC Nucleated RBCs # K/uL Sodium (136-148) mmol/L Potassium (3.5-5.1) mmol/L Chloride (98-107) mmol/L Carbon Dioxide (21.0-32.0) mmol/L BUN (7.0-18.0) mg/dL Creatinine (0.8-1.3) mg/dL Est Cr Clr Drug Dosing mL/min Estimated GFR (MDRD) ml/min Glucose (74-106) mg/dL POC Glucose 155 H 293 H (60-110) mg/dL Calcium (8.5-10.1) mg/dL Phosphorus (2.6-4.7) mg/dL Magnesium (1.8-2.4) mg/dL Med Orders - Current: Current Medications Acetaminophen (Tylenol) 650 mg PO Q6H PRN PRN Reason: Pain/Fever Last Admin: 10/15/19 11:01 Dose: 650 mg Documented by: Benzocaine/Menthol (Cepacol Sore Throat) 1 lozenge MUCMEM Q2H PRN PRN Reason: Sore Throat Dexamethasone (Dexamethasone) 6 mg IVPUSH DAILY [facility] Last Admin: 10/15/19 08:52 Dose: 6 mg Documented by: Enoxaparin Sodium (Lovenox) 70 mg 1 mg/kg (70 mg) SUBCUT Q12H [facility] Last Admin: 10/15/19 11:01 Dose: 70 mg Documented by: Lisinopril/HCTZ (Lisinopril-Hctz 10-12.5 Mg) 1 tab PO DAILY [facility] Last Admin: 10/15/19 08:53 Dose: 1 tab Documented by: Azithromycin 500 mg/ Sodium (Chloride) 250 mls @ 250 mls/hr IV DAILY [facility] Last Admin: 10/15/19 08:53 Dose: 250 mls/hr Documented by: Insulin Aspart (Novolog) 0 unit SUBCUT TIDAC [facility]; Protocol Last Admin: 10/15/19 12:31 Dose: 3 units Documented by: Phenol/Menthol (Chloraseptic Throat [place]) 0 ml MUCMEM Q2H PRN PRN Reason: Sore Throat Discontinued Medications Enoxaparin Sodium (Lovenox) 40 mg SUBCUT Q24H [facility] Last Admin: 10/13/19 21:43 Dose: 40 mg Documented by: Famotidine (Pepcid) 20 mg IVPUSH ONETIME ONE Stop: 10/12/19 17:45 Last Admin: 10/12/19 17:58 Dose: 20 mg Documented by: Sodium Chloride (Normal Saline) 1,000 mls @ 999 mls/hr IV .Bolus ONE Stop: 10/12/19 17:32 Last Admin: 10/12/19 16:43 Dose: 999 mls/hr Documented by: Sodium Chloride (Normal Saline) 1,000 mls @ 999 mls/hr IV .Bolus ONE Stop: 10/12/19 17:34 Last Admin: 10/12/19 16:44 Dose: 999 mls/hr Documented by: Sodium Chloride (Normal Saline) 1,000 mls @ 999 mls/hr IV ASDIRECTED [facility] Last Admin: 10/12/19 17:58 Dose: 999 mls/hr Documented by: Sodium Chloride (Normal Saline) 1,000 mls @ 50 mls/hr IV ASDIRECTED [facility] Last Admin: 10/13/19 16:20 Dose: 125 mls/hr Documented by: Magnesium Sulfate 2 gm/ Premix 50 mls @ 50 mls/hr IV ONETIME ONE Stop: 10/14/19 11:23 Last Admin: 10/14/19 11:59 Dose: 50 mls/hr Documented by: Sodium Chloride (Normal Saline) 250 mls @ 999 mls/hr IV ONETIME ONE Stop: 10/15/19 11:37 Last Admin: 10/15/19 12:26 Dose: 999 mls/hr Documented by: Labetalol HCl (Normodyne) 20 mg IVPUSH ONETIME ONE; Protocol Stop: 10/14/19 18:14 Last Admin: 10/14/19 18:29 Dose: 20 mg Documented by: Meclizine HCl (Antivert) 25 mg PO ONETIME ONE Stop: 10/12/19 19:02 Last Admin: 10/12/19 19:10 Dose: 25 mg Documented by: Ondansetron HCl (Zofran) 4 mg IVPUSH ONETIME ONE Stop: 10/12/19 16:33 Last Admin: 10/12/19 16:44 Dose: 4 mg Documented by: - Exam Quality Assessment: Supplemental Oxygen General: Alert, Oriented Neck: Supple, Trachea Midline Lungs: Clear to Auscultation, Normal Respiratory Effort, Decreased Breath Sounds GI/Abdominal Exam: Normal Bowel Sounds, Soft, Non-Tender Sepsis Event Note - Evaluation Sepsis Screening Result: No Definite Risk - Focused Exam Vital Signs: Vital Signs Temp Pulse Resp BP Pulse Ox 10/15/19 12:00 37.3 C 84 21 H 131/73 91 L 10/15/19 08:45 36.3 C 78 22 H 140/74 90 L Date Exam was Performed: 10/15/19 Time Exam was Performed: 16:16 - Problem List Review Problem List Initiated/Reviewed/Updated: Yes - Plan Plan:: 84 yo male admitted with dizziness found to have acute kidney injury likely from dehydration and COVID-19. Acute kidney injury: Slight jump in foreign diplomat, will give a small bolus of fluids Dizziness: CT head negative, Dizziness has resolved, feels weak COVID-19: CXR shows b/l infiltrate suggestive for COVID PNA, cont IV dexamethasone , IV azithromycin, we dont have Remdesivir available here, so far patient is stable, if oxygen requirement go up will have to transfer to [facility]. D-Dimer is high so will start Lovenox therapeutic dose. Leucopenia resolved, no sepsis for now, Monitor and replete electrolytes as needed cont Oxygen via Nasal cannula, titrate down as tolerated
[2019-10-15] MEDS ORDERED: Magnesium Oxide 400 MG Tab PO ONE (16:23)
[2019-10-15] MEDS ORDERED: Furosemide 20 MG/2 ML VIAL IVPUSH ONE (21:04)
[2019-10-16 07:13] LABS: CARBON DIOXIDE,CO2 26.9 mmol/L (21.0-32.0); POTASSIUM,K 3.6 mmol/L (3.5-5.1)
[2019-10-16] MEDS: Insulin Aspart 100 Units/ML 3 ML Pen SUBCUT SCH (09:14)
--- NOTE | 2019-10-16 09:21 | PN ---
THC Physician - Brief Progress [id number]/14/2020 09:09[facility] Sean Tovar, [place] - [facility] - MWN FRANK GALLARDODate of Service 10/16/2019 09:09HPI/Events o f Note eICU Admission [id number] admitted for worsening hypoxemic respiratory failure attributed to COVI D. History obtained from review of EMR.PMH: DM, HTN.HPI:Patient had been originally admitted on 2019 for worsening dizziness and difficulty walking. On evaluation he was found to be positive for CO VID, and admitted for further management.Hypoxia and tachypnea worsened today AM, which prompted ann sfer to ICU. He is on dexamethasone, azithromycin, and lovenox.Per discussion with excellent bedside provider, primary team is seeking to transfer patient for consideration of other COVID-specific thera pies.Camera exam: Laying in bed. Vitals monitor reviewed. Labs: reviewedRadiology: reviewedeICU Impre ssion and Recommendations:Acute hypoxemic respiratory failure attributed to COVIDTachycardia and tach ypnea, in setting of COVID technically meets criteria for sepsisAgree with dexamethasone, would jose nue for a total of 10 daysGiven acuity of respiratory decline, will start empiric coverage of HAP (va nc + zosyn ordered) given potential for concomitant bacterial co-infection Agree with evaluation for transfer for consideration of other COVID specific therapies (ie remdesivir, tocilizumab)Would sugges t maintaining net zero fluid balance at this time given suspected TEENA on admissionShould oxygen requi rements worsen, consider use of NIPPV (defer to local hospital policy)Blood cultures, lactic acid to complete sepsis work up (ordered)DVT and GI prophylaxis as appropriate.Thank you for allowing us to p articipate in the care of this patient.The above note transcribed with the assistance of dictation so ftware. Please excuse any errors.Interventions Major-Respiratory failure - evaluation and management, Sepsis - evaluation and management
[2019-10-16] MEDS ORDERED: Piperacillin/Tazobactam 3.375 GM in Sodium Chloride 0.9% 100 ML IV SCH (09:30)
[2019-10-16] MEDS ORDERED: Piperacillin/Tazobactam 4.5 GM in Sodium Chloride 0.9% 100 ML IV SCH (09:30)
[2019-10-16] MEDS ORDERED: Midazolam 1 MG/ML 2 ML SDV ONE (09:41)
--- NOTE | 2019-10-16 09:41 | PCM.DCSUM1 ---
Discharge Summary - Hospital Course Free Text/Narrative:: 84 yo male with pmh of DM, and hypertension who presented to the ED with a one week complaint of dizziness, weakness .Patient reports his gait has become so unsteady that he has difficulty walking. Patient denies any fever, chills, shortness of breath, or diarrhea. CT head was done which was negative for intra cranial bleed. Patient was positive for covid-19. Labs were significant for TEENA, with pediatric ophthalmologist of 1.7. Patient was admitted for admitted for further management. Overnight patients pulse oxy dropped to 80s, and was started on 2L oxygen, CXR was done which showed b/l Infiltrates. Patient was started on IV dexamethasone 6 mg daily and IV azithromycin 500 daily, He was also started on Full dose Lovenox. Remdesivir not available in our facility. Day 3 patients oxygen requirement went up to 4L, he was given some Lasix and put in prone position while helped for a short time but after that oxygen requirements went up and patient was started on high flow. Eventually due to progressive respiratory failure patient was shifted to icu and intubated. Started on board spectrum Antibiotics. Patient is being transferred to [facility] for further management. - Discharge Data Discharge Date: 10/16/19 Discharge Disposition: Home, Self-Care 01 Condition: Stable - Referral to Home Health Primary Care Physician: Jackeline Richards MD - Discharge Plan Prescriptions/Med Rec: Meclizine [Antivert] 25 mg PO Q6H PRN #20 tab PRN Reason: Dizziness Ondansetron [Zofran ODT] 4 mg PO Q6H PRN 5 Days #12 tab.dis PRN Reason: Nausea/Vomiting Home Medications: Home Meds metFORMIN [Glucophage] 1,000 mg PO BID 11/07/13 [History] Latanoprost [Xalatan 0.005% Ophth Soln] 1 drop EYELF BID 05/24/16 [History] Lisinopril/Hydrochlorothiazide [Lisinopril-Hctz 10-12.5 mg Tab] 1 tab PO DAILY 05/24/16 [History] Meclizine HCl 25 mg PO BID PRN 05/24/16 [History] Multivit-Minerals/FA/Lycopene [One Daily Men's Health Tablet] 1 tab PO BID 05/24/16 [History] Pomegranate Fruit Extract [Pomegranate] 1 tab PO BID 05/24/16 [History] glipiZIDE [Glucotrol] 5 mg PO DAILY 05/24/16 [History] traZODone HCl [Trazodone HCl] 50 mg PO BEDTIME 05/24/16 [History] Meclizine [Antivert] 25 mg PO Q6H PRN #20 tab 10/12/19 [Rx] Ondansetron [Zofran ODT] 4 mg PO Q6H PRN 5 Days #12 tab.dis 10/12/19 [Rx] Forms: ED Department Discharge Referrals: Jackeline Richards MD [Primary Care Provider] - - Discharge Summary/Plan Comment DC Time >30 min.: Yes (arranging transfer to another facility) - Patient Data Vitals - Most Recent: Last Vital Signs Temp 36.9 C 10/16/19 09:12 Pulse 115 H 10/16/19 09:12 Resp 30 H 10/16/19 09:12 BP 160/95 H 10/16/19 09:12 Pulse Ox 91 L 10/16/19 09:12 Weight - Most Recent: 71.758 kg I&O - Last 24 hours: Intake & Output 10/15/19 10/16/19 10/16/19 22:59 06:59 14:59 Intake Total 350 400 Output Total 200 987 Balance 150 -587 Lab Results - Last 24 hrs: Laboratory Results - last 24 hr 10/15/19 10/15/19 10/16/19 Range/Units 11:05 16:25 03:47 WBC (4.0-11.0) K/uL RBC (4.50-5.90) M/uL Hgb (13.0-17.0) g/dL Hct (38.0-50.0) % MCV (80.0-98.0) fL MCH (27.0-32.0) pg MCHC (31.0-37.0) g/dL RDW Std Deviation (28.0-62.0) fl RDW Coeff of [place] (11.0-15.0) % Plt Count (150-400) K/uL MPV (7.40-12.00) fL Neut % (Auto) (48.0-80.0) % Lymph % (Auto) (16.0-40.0) % [place] % (Auto) (0.0-15.0) % Eos % (Auto) (0.0-7.0) % Baso % (Auto) (0.0-1.5) % Neut # (Auto) (1.4-5.7) K/uL Lymph # (Auto) (0.6-2.4) K/uL [place] # (Auto) (0.0-0.8) K/uL Eos # (Auto) (0.0-0.7) K/uL Baso # (Auto) (0.0-0.1) K/uL Nucleated RBC % /100WBC Nucleated RBCs # K/uL Sodium (136-148) mmol/L Potassium (3.5-5.1) mmol/L Chloride (98-107) mmol/L Carbon Dioxide (21.0-32.0) mmol/L BUN (7.0-18.0) mg/dL Creatinine (0.8-1.3) mg/dL Est Cr Clr Drug Dosing mL/min Estimated GFR (MDRD) ml/min Glucose (74-106) mg/dL POC Glucose 293 H 260 H 163 H (60-110) mg/dL Calcium (8.5-10.1) mg/dL Phosphorus (2.6-4.7) mg/dL Magnesium (1.8-2.4) mg/dL Ferritin (26-388) ng/mL C-Reactive Protein (0.00-0.90) mg/dL 10/16/19 10/16/19 10/16/19 Range/Units 06:39 06:39 06:39 WBC 6.19 (4.0-11.0) K/uL RBC 3.77 L (4.50-5.90) M/uL Hgb 10.9 L (13.0-17.0) g/dL Hct 32.3 L (38.0-50.0) % MCV 85.7 (80.0-98.0) fL MCH 28.9 (27.0-32.0) pg MCHC 33.7 (31.0-37.0) g/dL RDW Std Deviation 42.6 (28.0-62.0) fl RDW Coeff of [place] 14 (11.0-15.0) % Plt Count 195 (150-400) K/uL MPV 9.30 (7.40-12.00) fL Neut % (Auto) 89.2 H (48.0-80.0) % Lymph % (Auto) 6.1 L (16.0-40.0) % [place] % (Auto) 4.5 (0.0-15.0) % Eos % (Auto) 0.0 (0.0-7.0) % Baso % (Auto) 0.2 (0.0-1.5) % Neut # (Auto) 5.5 (1.4-5.7) K/uL Lymph # (Auto) 0.4 L (0.6-2.4) K/uL [place] # (Auto) 0.3 (0.0-0.8) K/uL Eos # (Auto) 0.0 (0.0-0.7) K/uL Baso # (Auto) 0.0 (0.0-0.1) K/uL Nucleated RBC % 0.0 /100WBC Nucleated RBCs # 0 K/uL Sodium 136 (136-148) mmol/L Potassium 3.6 (3.5-5.1) mmol/L Chloride 98 (98-107) mmol/L Carbon Dioxide 26.9 (21.0-32.0) mmol/L BUN 23 H (7.0-18.0) mg/dL Creatinine 1.4 H (0.8-1.3) mg/dL Est Cr Clr Drug Dosing 37.32 mL/min Estimated GFR (MDRD) 48.2 ml/min Glucose 182 H (74-106) mg/dL POC Glucose (60-110) mg/dL Calcium 8.8 (8.5-10.1) mg/dL Phosphorus 2.1 L (2.6-4.7) mg/dL Magnesium 1.5 L (1.8-2.4) mg/dL Ferritin 626 H (26-388) ng/mL C-Reactive Protein (0.00-0.90) mg/dL 10/16/19 10/16/19 Range/Units 06:39 08:17 WBC (4.0-11.0) K/uL RBC (4.50-5.90) M/uL Hgb (13.0-17.0) g/dL Hct (38.0-50.0) % MCV (80.0-98.0) fL MCH (27.0-32.0) pg MCHC (31.0-37.0) g/dL RDW Std Deviation (28.0-62.0) fl RDW Coeff of [place] (11.0-15.0) % Plt Count (150-400) K/uL MPV (7.40-12.00) fL Neut % (Auto) (48.0-80.0) % Lymph % (Auto) (16.0-40.0) % [place] % (Auto) (0.0-15.0) % Eos % (Auto) (0.0-7.0) % Baso % (Auto) (0.0-1.5) % Neut # (Auto) (1.4-5.7) K/uL Lymph # (Auto) (0.6-2.4) K/uL [place] # (Auto) (0.0-0.8) K/uL Eos # (Auto) (0.0-0.7) K/uL Baso # (Auto) (0.0-0.1) K/uL Nucleated RBC % /100WBC Nucleated RBCs # K/uL Sodium (136-148) mmol/L Potassium (3.5-5.1) mmol/L Chloride (98-107) mmol/L Carbon Dioxide (21.0-32.0) mmol/L BUN (7.0-18.0) mg/dL Creatinine (0.8-1.3) mg/dL Est Cr Clr Drug Dosing mL/min Estimated GFR (MDRD) ml/min Glucose (74-106) mg/dL POC Glucose 179 H (60-110) mg/dL Calcium (8.5-10.1) mg/dL Phosphorus (2.6-4.7) mg/dL Magnesium (1.8-2.4) mg/dL Ferritin (26-388) ng/mL C-Reactive Protein 16.10 H (0.00-0.90) mg/dL Med Orders - Current: Current Medications Acetaminophen (Tylenol) 650 mg PO Q6H PRN PRN Reason: Pain/Fever Last Admin: 10/15/19 20:45 Dose: 650 mg Documented by: Benzocaine/Menthol (Cepacol Sore Throat) 1 lozenge MUCMEM Q2H PRN PRN Reason: Sore Throat Dexamethasone (Dexamethasone) 6 mg IVPUSH DAILY [facility] Last Admin: 10/15/19 08:52 Dose: 6 mg Documented by: Enoxaparin Sodium (Lovenox) 70 mg 1 mg/kg (70 mg) SUBCUT Q12H [facility] Last Admin: 10/15/19 21:29 Dose: 70 mg Documented by: Azithromycin 500 mg/ Sodium (Chloride) 250 mls @ 250 mls/hr IV DAILY [facility] Last Admin: 10/15/19 08:53 Dose: 250 mls/hr Documented by: Vancomycin HCl 1.5 gm/ Premix 300 mls @ 200 mls/hr IV ONETIME ONE Stop: 10/16/19 10:44 Vancomycin HCl 1.25 gm/ Sodium (Chloride) 250 mls @ 250 mls/hr IV Q24H [facility] Piperacillin Sod/Tazobactam (Sod 3.375 gm/ Sodium Chloride) 100 mls @ 100 mls/hr IV Q6H [facility] Insulin Aspart (Novolog) 0 unit SUBCUT TIDAC [facility]; Protocol Last Admin: 10/16/19 09:14 Dose: Not Given Documented by: Phenol/Menthol (Chloraseptic Throat [place]) 0 ml MUCMEM Q2H PRN PRN Reason: Sore Throat Last Admin: 10/15/19 21:27 Dose: 1 spray Documented by: Discontinued Medications Enoxaparin Sodium (Lovenox) 40 mg SUBCUT Q24H [facility] Last Admin: 10/13/19 21:43 Dose: 40 mg Documented by: Famotidine (Pepcid) 20 mg IVPUSH ONETIME ONE Stop: 10/12/19 17:45 Last Admin: 10/12/19 17:58 Dose: 20 mg Documented by: Furosemide (Lasix) 20 mg IVPUSH NOW ONE Stop: 10/15/19 21:05 Last Admin: 10/15/19 21:29 Dose: 20 mg Documented by: Lisinopril/HCTZ (Lisinopril-Hctz 10-12.5 Mg) 1 tab PO DAILY [facility] Last Admin: 10/15/19 08:53 Dose: 1 tab Documented by: Sodium Chloride (Normal Saline) 1,000 mls @ 999 mls/hr IV .Bolus ONE Stop: 10/12/19 17:32 Last Admin: 10/12/19 16:43 Dose: 999 mls/hr Documented by: Sodium Chloride (Normal Saline) 1,000 mls @ 999 mls/hr IV .Bolus ONE Stop: 10/12/19 17:34 Last Admin: 10/12/19 16:44 Dose: 999 mls/hr Documented by: Sodium Chloride (Normal Saline) 1,000 mls @ 999 mls/hr IV ASDIRECTED [facility] Last Admin: 10/12/19 17:58 Dose: 999 mls/hr Documented by: Sodium Chloride (Normal Saline) 1,000 mls @ 50 mls/hr IV ASDIRECTED [facility] Last Admin: 10/13/19 16:20 Dose: 125 mls/hr Documented by: Magnesium Sulfate 2 gm/ Premix 50 mls @ 50 mls/hr IV ONETIME ONE Stop: 10/14/19 11:23 Last Admin: 10/14/19 11:59 Dose: 50 mls/hr Documented by: Sodium Chloride (Normal Saline) 250 mls @ 999 mls/hr IV ONETIME ONE Stop: 10/15/19 11:37 Last Admin: 10/15/19 12:26 Dose: 999 mls/hr Documented by: Piperacillin Sod/Tazobactam (Sod 4.5 gm/ Sodium Chloride) 100 mls @ 100 mls/hr IV Q6H [facility] Labetalol HCl (Normodyne) 20 mg IVPUSH ONETIME ONE; Protocol Stop: 10/14/19 18:14 Last Admin: 10/14/19 18:29 Dose: 20 mg Documented by: Magnesium Oxide (Magnesium Oxide) 800 mg PO ONETIME ONE Stop: 10/15/19 16:24 Last Admin: 10/15/19 17:45 Dose: 800 mg Documented by: Meclizine HCl (Antivert) 25 mg PO ONETIME ONE Stop: 10/12/19 19:02 Last Admin: 10/12/19 19:10 Dose: 25 mg Documented by: Ondansetron HCl (Zofran) 4 mg IVPUSH ONETIME ONE Stop: 10/12/19 16:33 Last Admin: 10/12/19 16:44 Dose: 4 mg Documented by: Vancomycin HCl (Pharmacy To Dose - Vancomycin) 1 dose .XX ASDIRECTED [facility]
[2019-10-16] MEDS ORDERED: propofoL 100 ML ONE (09:47)
--- NOTE | 2019-10-16 10:16 | PCM.SN.2 ---
- Free Text/Narrative Note: Called by Dr Aguilar for intubation. On arrival I was informed the pt is COVID-19 positive. After discussing with the hospitalist and eICU, Intubation will be performed. Boot covers, gown, double gloves, and PAPR were donned. RT at the bedside with ventilator set up pre-intubation. BVM set up with HEPA filter between Bag and mask. Pre-intubation VS HR - 135 Sinus Tach RR - 50-60's BP - 164/81 SpO2 - 85% on Simple Mask at 10 LPM. RSI performed with the following: Etomidate 20mg IVP Rocuronium 10mg IVP Succinylcholine 100mg IVP DL with Glidescope #4 yields Grade I view. 8.0 ETT placed, +EtCO2, + BBS. HEPA filter placed directly onto ETT. Dentures removed and given to nursing. Ventilator Settings titrated up to Maintain SpO2 >88%. R -18 TV - 500 P - 5 FiO2 - 100% VS - Post Intubation HR 116 Sinus Tach SpO2 - 90% BP - 123/76 RR - 18 controlled EtCO2 - 40mmHg CXR Pending at this time.
--- NOTE | 2019-10-16 10:27 | CR ---
Chest: Portable view of the chest was obtained. Comparison: Prior chest x-ray of 10/13/19. Diffuse increased density on both sides the chest are seen. Endotracheal tube is seen lying below the clavicle at above the tino in satisfactory position. Prior right shoulder surgery is partially seen. Chronic rotator cuff tears partially visualized within both shoulders. Degenerative endplate spurring noted within the spine. Heart size appears within normal limits. Impression: 1. Diffuse increased density within both sides of the chest. Findings could represent diffuse pneumonia as well as pulmonary vascular congestion and early pulmonary edema if patient has an acute cardiac event. Neurogenic edema is also within the differential. 2. Satisfactory position of endotracheal tube. Diagnostic code #5 This report was dictated in MDT
[2019-10-16] MEDS: Azithromycin 500 MG in Sodium Chloride 0.9% 250 ML IV SCH (10:54)
[2019-10-16] MEDS: Dexamethasone 10 MG/ML SDV IVPUSH SCH (10:54)
[2019-10-16 13:03] VITALS: BP 123/76; PULSE 116
== END 2019-10-16 10:20 | DRG 208 ==
LOC: MW.ED 15:53 → MW.MS 21:20 → MW.ICU 22:01 → OBSVTOIN 10-15 11:19
PROVIDERS: ADMIT Internal Medicine; ATTEND Internal Medicine
PROC: 0BH17EZ Insertion of Endotracheal Airway into Trachea, Via Natural or Artificial Opening (ICD-10-PCS; principal; 2019-10-16)
PROC: 5A1935Z Respiratory Ventilation, Less than 24 Consecutive Hours (ICD-10-PCS; 2019-10-16)
PROC: 8E0ZXY6 Isolation (ICD-10-PCS; 2019-10-16)
DX: U07.1 COVID-19 (principal); J80 Acute respiratory distress syndrome; R79.1 Abnormal coagulation profile; R27.0 Ataxia, unspecified; J96.01 Acute respiratory failure with hypoxia; J12.89 Other viral pneumonia; N17.9 Acute kidney failure, unspecified; I10 Essential (primary) hypertension; E11.9 Type 2 diabetes mellitus without complications; H91.90 Unspecified hearing loss, unspecified ear; N40.0 Benign prostatic hyperplasia without lower urinary tract symptoms; M79.2 Neuralgia and neuritis, unspecified; F32.9 Major depressive disorder, single episode, unspecified; E86.0 Dehydration; Z85.038 Personal history of other malignant neoplasm of large intestine; Z79.84 Long term (current) use of oral hypoglycemic drugs; Z79.899 Other long term (current) drug therapy; Z86.010 Personal history of colon polyps; Z98.49 Cataract extraction status, unspecified eye; Z90.89 Acquired absence of other organs; Z86.73 Personal history of transient ischemic attack (TIA), and cerebral infarction without residual deficits
CPT/HCPCS: 36415 ×4; 70450; 71045; 80048 ×3; 80053; 80076; 81001; 82550; 82728; 82800; 82962 ×8; 83735 ×2; 84100 ×2; 85025 ×3; 85027; 85379; 85610; 85730; 86140; 93005; 96361 ×3; 96365; 96366 ×2; 96372; 96374; 96375 ×3; 96376 ×2; 99285; A9270 ×7; G0378 ×4; J0456 ×3; J1100 ×3; J1650 ×4; J1815; J2405; J3475; J3490 ×2; J7030 ×6; J7050 ×3; U0002; 31500; 93010; 94002; J2250; J2704